=== PATIENT | male | born 1990 | race Hispanic/Latino ===

== ENCOUNTER 2019-07-22 12:41 | Emergency (ER) | payer OTHER, SELFPAY ==
[2019-07-22 12:59] VITALS: BP 155/89; PULSE 63; RESP 16; TEMP 36.6; O2SAT 99
--- NOTE | 2019-07-22 13:28 | ED.MALEGU ---
HPI - Male Genitourinary General Chief complaint: Urogenital-Male Stated complaint: std History of Present Illness HPI Narrative: Patient comes in complaining because a lady that he is sleeping with was positive for Chlymida. Patient was just treated but he wanted to make sure due to he just started having sex again with his and he does not want to give her anything. Patient has no symptoms at this time. Related Data Home Medications Medication Instructions Recorded Confirmed azithromycin 07/22/19 Allergies Allergy/AdvReac Type Severity Reaction Status Date / Time morphine Allergy Mild Verified 11/26/09 19:02 Review of Systems Review of Systems: Narrative: CONSTITUTIONAL: Denies fever, chills, or sweats. EYES: Denies visual changes, redness, or discharge. ENT: Denies rhinorrhea, congestion, sore throat, or otalgia. CARDIOVASCULAR:Denies chest pain, palpitations, or edema. RESPIRATORY: Denies cough or dyspnea. GASTROINTESTINAL: Denies abdominal pain, nausea, vomiting, or diarrhea. GENITOURINARY: Denies dysuria or hematuria. SKIN:[Denies rash or itching. MUSCULOSKELETAL:Denies back pain, joint pain, or myalgia. NEUROLOGIC: Denies headache, numbness, or weakness. PSYCHIATRIC:Denies anxiety or depression PMFSH Social History Social History Gender identity (if verbalized by the patient): Male Comments At time as signature, I have reviewed and agree with nursing past medical, social, surgical and family history. Please see nursing chart for further information. There is no relevant family history pertinent to the presenting complaint. Exam Narrative: Exam Narrative: GENERAL:Well-appearing, well-nourished, and in no acute distress. HEAD:Normocephalic, atraumatic. EYES: PERRLA and EOMI. ENT: Nares clear, no rhinorrhea or epistaxis. Mucous membranes moist. NECK: Supple. CHEST: Clear to auscultation. No respiratory distress. HEART: Regular rate and rhythm. No murmur heard. Normal peripheral pulses. ABDOMEN: Soft, nontender, nondistended, normal active bowel sounds. EXTREMITIES: Normal range of motion. No edema. SKIN: Warm, dry, no rash. NEURO: No focal deficits. Alert and oriented x3. We will go ahead and prophylactically treat this patient at this time and send off cultures Course Vital Signs Vital signs: Vital Signs Temperature 97.9 F 07/22/19 12:59 Pulse Rate 63 07/22/19 12:59 Respiratory Rate 16 07/22/19 12:59 Blood Pressure 155/89 H 07/22/19 12:59 Pulse Oximetry 99 07/22/19 12:59 Temperature 97.9 F 07/22/19 12:59 Pulse Rate 63 07/22/19 12:59 Respiratory Rate 16 07/22/19 12:59 Blood Pressure 155/89 H 07/22/19 12:59 Pulse Oximetry 99 07/22/19 12:59 MDM - Male Genitourinary Differential Diagnosis Differential diagnosis: Likely urinary tract infection, urethritis, genital herpes simplex and prostatitis Lab Data Labs: Urine Characteristics Clear Discharge Plan Discharge Clinical Impression: Encounter for assessment of STD exposure Patient Disposition: Home, Self-Care Condition: Stable Instructions: Antibiotic Form, Chlamydia (ED), Sexually Transmitted Diseases (ED), Safe Sex Practices (ED) Prescriptions: No Action azithromycin 500 mg tablet RF: 0 Follow-up/Referrals: UNKNOWN,DOCTOR [Primary Care Provider] - Time of Disposition: 13:30 Discharge Date/Time: 07/22/19 14:04
[2019-07-22] MEDS: AZITHROMYCIN 250 MG TABLET 1000 MG PO (13:42)
[2019-07-22] MEDS: cefTRIAXone 250 MG VIAL IM (13:43)
== END 2019-07-22 14:04 | disposition home or self-care (01) ==
PROVIDERS: Emergency Provider Nurse Practitioner Family
DX: Z20.2 Contact with and (suspected) exposure to infections with a predominantly sexual mode of transmission (principal)
CPT/HCPCS: 87491; 87591; 96372; 99203; A9270; G0463; J0696